=== PATIENT | female | born 1950 | race Caucasian/White ===

== ENCOUNTER 2022-12-04 09:01 | Inpatient (IN) | payer MEDICARE ==
[2022-12-04 09:13] VITALS: BMI 22.4
[2022-12-04] MEDS ORDERED: ACETAMINOPHEN 500 MG TABLET (FP) PO ONE (09:16)
[2022-12-04] MEDS ORDERED: ACETAMINOPHEN 500 MG TABLET (FP) ONE (09:18)
[2022-12-04 11:30] LABS: HEMATOCRIT 40.4 % (32.4-45.2); HEMOGLOBIN 13.5 G/dL (10.7-15.3); MCH 29.5 pg (25.7-33.7); MCHC 33.4 g/dl (32.0-36.0); MEAN CELL VOLUME 88.3 fl (80-96); PLATELET COUNT 319.7 10^3/uL (134-434); RBC 4.57 10^6/uL (3.60-5.2); WHITE BLOOD COUNT 16.3 10^3/uL (4.0-10.8)
[2022-12-04 12:01] LABS: PLATELET ESTIMATE ADEQUATE
[2022-12-04 12:04] LABS: ALBUMIN 4.4 g/dl (3.4-5.0); BILIRUBIN,TOTAL 0.4 mg/dl (0.2-1); CALCIUM 10.2 mg/dl (8.5-10.1); CREATININE 0.8 mg/dl (0.6-1.3); POTASSIUM 4.3 mmol/L (3.5-5.1); SGOT/AST 26.8 U/L (15-37); SGPT/ALT 31.9 U/L (7-52); TOT PROT 6.4 g/dl (6.4-8.2)
[2022-12-04 17:28] LABS: HEMATOCRIT 40.2 % (32.4-45.2); HEMOGLOBIN 13.9 G/dL (10.7-15.3); MCH 30.5 pg (25.7-33.7); MCHC 34.6 g/dl (32.0-36.0); MEAN CELL VOLUME 88.1 fl (80-96); MEAN PLT VOLUME 8.3 fl (7.5-11.1); PLATELET COUNT 300.5 10^3/uL (134-434); RBC 4.56 10^6/uL (3.60-5.2); RDW 13.6 % (11.6-15.6); WHITE BLOOD COUNT 13.9 10^3/uL (4.0-10.8)
[2022-12-04 17:30] LABS: ALBUMIN 4.5 g/dl (3.4-5.0); BILIRUBIN,TOTAL 0.5 mg/dl (0.2-1); BLOOD UREA NITROGEN 20.6 mg/dl (7-18); CALCIUM 9.8 mg/dl (8.5-10.1); CREATININE 0.9 mg/dl (0.6-1.3); MAGNESIUM 2.1 mg/dL (1.8-2.4); PHOSPHOROUS 3.75 (2.5-4.9); POTASSIUM 4.4 mmol/L (3.5-5.1); SGOT/AST 24.6 U/L (15-37); SGPT/ALT 31.5 U/L (7-52); TOT PROT 6.3 g/dl (6.4-8.2)
[2022-12-04] MEDS: ACETAMINOPHEN 325 MG TABLET (FP) PO PRN (20:39)
[2022-12-04] MEDS: ROSUVASTATIN CA 20 MG TABLET PO SCH (22:48)
[2022-12-05] MEDS: ACETAMINOPHEN 325 MG TABLET (FP) PO PRN ×3 (06:53→21:17)
[2022-12-05] MEDS ORDERED: KETOROLAC TROMETHAMINE 15 MG/ML VIAL IVPUSH PRN (07:39)
[2022-12-05 08:01] LABS: HEMATOCRIT 37.2 % (32.4-45.2); HEMOGLOBIN 12.6 G/dL (10.7-15.3); MCH 29.9 pg (25.7-33.7); MEAN PLT VOLUME 7.7 fl (7.5-11.1); PLATELET COUNT 284.5 10^3/uL (134-434); RBC 4.23 10^6/uL (3.60-5.2); RDW 13.6 % (11.6-15.6); WHITE BLOOD COUNT 9.8 10^3/uL (4.0-10.8)
[2022-12-05 08:20] LABS: ALBUMIN 4.2 g/dl (3.4-5.0); BILIRUBIN,TOTAL 0.7 mg/dl (0.2-1); BLOOD UREA NITROGEN 19.8 mg/dl (7-18); CALCIUM 9.1 mg/dl (8.5-10.1); CREATININE 0.7 mg/dl (0.6-1.3); POTASSIUM 4.1 mmol/L (3.5-5.1); SGOT/AST 18.6 U/L (15-37); SGPT/ALT 25.4 U/L (7-52)
[2022-12-05 08:34] LABS: PLATELET ESTIMATE ADEQUATE
[2022-12-05] MEDS: LOSARTAN POTASSIUM 50 MG TABLET PO SCH (09:30)
[2022-12-05] MEDS: ENOXAPARIN NA (PORCINE) 40 MG/0.4 ML DISP.SYRIN SQ SCH (09:30)
[2022-12-05] MEDS: ROSUVASTATIN CA 20 MG TABLET PO SCH (21:17)
[2022-12-06] MEDS: LOSARTAN POTASSIUM 50 MG TABLET PO SCH (09:43)
[2022-12-06] MEDS: ENOXAPARIN NA (PORCINE) 40 MG/0.4 ML DISP.SYRIN SQ SCH (09:44)
[2022-12-06] MEDS: ACETAMINOPHEN 325 MG TABLET (FP) PO PRN ×2 (09:44→21:12)
[2022-12-06] MEDS ORDERED: POLYETHYLENE GLYCOL (HEALTHYLAX) 3350 17 GM PACKET PO ONE (17:30)
[2022-12-06] MEDS: ROSUVASTATIN CA 20 MG TABLET PO SCH (21:12)
[2022-12-07 03:22] VITALS: RESP 18
[2022-12-07 06:48] VITALS: PULSE 90
[2022-12-07 09:56] VITALS: BP 134/70; TEMP 99.1
[2022-12-07] MEDS ORDERED: POLYETHYLENE GLYCOL (HEALTHYLAX) 3350 17 GM PACKET PO SCH (10:00)
[2022-12-07] MEDS: ENOXAPARIN NA (PORCINE) 40 MG/0.4 ML DISP.SYRIN SQ SCH (10:28)
[2022-12-07] MEDS: ACETAMINOPHEN 325 MG TABLET (FP) PO PRN (10:29)
[2022-12-07] MEDS: LOSARTAN POTASSIUM 50 MG TABLET PO SCH (10:29)
== END 2022-12-07 11:59 | DRG 536 ==
LOC: FER 09:01 → FM/S 11:29
PROVIDERS: ATTEND Internal Medicine
DX: S32.592A Other specified fracture of left pubis, initial encounter for closed fracture (principal); S52.502A Unspecified fracture of the lower end of left radius, initial encounter for closed fracture; S62.102A Fracture of unspecified carpal bone, left wrist, initial encounter for closed fracture; W11.XXXA Fall on and from ladder, initial encounter; Y93.89 Activity, other specified; Y92.89 Other specified places as the place of occurrence of the external cause; Y99.9 Unspecified external cause status; I10 Essential (primary) hypertension; E78.5 Hyperlipidemia, unspecified; K59.00 Constipation, unspecified
CPT/HCPCS: 36415; 72170-TC-FY; 72192-TC; 73110-TC-LT-FY; 73130-TC-LT-FY; 73502-TC-LT-FY; 80053; 81003; 81015; 83690; 83735; 83880; 84100; 84439; 84443; 84484; 85025; 85027; 87635; 93306-TC; 97116-GP; 97162-GP; 99285-25